=== PATIENT | female | born 1985 ===

== ENCOUNTER 2016-11-12 09:27 | Emergency (ER) | payer MEDICAID ==
[2016-11-12 09:35] VITALS: BP 137/74; PULSE 75; RESP 20; TEMP 97.7; O2SAT 100; BMI 35.4
--- NOTE | 2016-11-12 11:40 | US ---
Left lower extremity ultrasound Indication: Pain Technique: Duplex ultrasound evaluation of the left lower extremity Comparison: None available Findings: There is normal flow, compressibility, and augmentation of the left common femoral, femoral, and popliteal veins. The posterior tibial veins appear patent. Impression: No evidence of deep venous thrombosis in the left lower extremity.
--- NOTE | 2016-11-12 11:43 | ED PDOC ---
HPI: Back Time Seen by Provider: 11/12/16 10:12 Chief Complaint (Nursing): Lower Extremity Problem/Injury Chief Complaint (Provider): Lower Extremity Problem/Injury History Per: Patient History/Exam Limitations: no limitations Onset/Duration Of Symptoms: Days Current Symptoms Are (Timing): Still Present Quality Of Discomfort: "Pain" Severity: Mild Previous Symptoms: Back Pain Associated Symptoms: None Exacerbating Factor(s): Movement Additional Complaint(s): Patient is a 31 year old female who presents to ED for back pain since a fall in July 2016. Patient states she was initially evaluated in ED after the fall with normal Xrays, followed up with a chiropractor who instructed her that she had a pelvic tilt and a questionable abnormality in L5-S1. Patient states that after adjustments and yoga, pain is still present and only occasionally relieved with muscle relaxers and NSAIDs. Patient denies vaginal changes, urinary changes, weakness, numbness or neck pain. Patient reports that the pain is left sided, mostly the buttock with radiation up the back and down the left leg. Patient denies chest pain, SOB, leg swelling, palpations or leg pain. (-) leg weakness, saddle anesthesia, bowel or urinary incontinence Past Medical History Reviewed: Historical Data, Nursing Documentation, Vital Signs Vital Signs: Last Vital Signs Temp 97.7 F 11/12/16 09:34 Pulse 75 11/12/16 09:34 Resp 20 11/12/16 09:34 BP 137/74 11/12/16 09:34 Pulse Ox 100 11/12/16 09:34 - Medical History PMH: Asthma - Surgical History Surgical History: (x2 with epidurals ) - Family History Family History: States: No Known Family Hx - Living Arrangements Living Arrangements: With Family - Home Medications Home Medications: Ambulatory Orders Medication Instructions Recorded Cyclobenzaprine [Cyclobenzaprine 10 mg PO Q8 PRN #12 tab 11/12/16 HCl] traMADol [Ultram] 50 mg PO Q8 PRN #12 tab 11/12/16 - Allergies Allergies/Adverse Reactions: Allergies Allergy/AdvReac Type Severity Reaction Status Date / Time No Known Allergies Allergy Verified 11/12/16 09:46 Review of Systems ROS Statement: Except As Marked, All Systems Reviewed And Found Negative Constitutional: Negative for: Fever, Weakness Cardiovascular: Negative for: Chest Pain Respiratory: Negative for: Shortness of Breath Gastrointestinal: Negative for: Abdominal Pain Genitourinary Female: Negative for: Dysuria, Frequency, Vaginal Discharge, Vaginal Bleeding Musculoskeletal: Positive for: Back Pain, Leg Pain. Negative for: Neck Pain Neurological: Negative for: Weakness, Numbness Physical Exam - Reviewed Nursing Documentation Reviewed: Yes Vital Signs Reviewed: Yes - Physical Exam Appears: Positive for: Non-toxic, No Acute Distress Skin: Positive for: Normal Color, Warm Eye Exam: Positive for: Normal appearance Neck: Positive for: Normal, Painless ROM, Supple Cardiovascular/Chest: Positive for: Regular Rate, Rhythm. Negative for: Murmur Respiratory: Positive for: Normal Breath Sounds. Negative for: Respiratory Distress Pulses-Dorsalis Pedis (L): 2+ Pulses-Dorsalis Pedis (R): 2+ Pulses-Radial (L): 2+ Pulses-Radial (R): 2+ Gastrointestinal/Abdominal: Positive for: Normal Exam. Negative for: Tenderness Back: Positive for: Normal Inspection, Other (Left buttock tenderness, lower lumbar tenderness ). Negative for: L CVA Tenderness, R CVA Tenderness Extremity: Positive for: Normal ROM, Other (strength 5/5 upper and lower extremities ). Negative for: Pedal Edema, Calf Tenderness Neurologic/Psych: Positive for: Alert, Oriented, Gait (normal ). Negative for: Motor/Sensory Deficits - Laboratory Results Urine POC: Negative Urine dip results: Negative for: Leukocyte Esterase, Blood, Nitrate, Ketones, Glucose, Bilirubin, Protein - ECG O2 Sat by Pulse Oximetry: 100 (RA) Pulse Ox Interpretation: Normal Medical Decision Making Medical Decision Making: Time: 1025 Initial impression: Lumbar radiculopathy Initial plan: -- CT-lumbar -- Urine preg -- Urine dip -- Flexeril, Toradol and Tramadol -- Duplex Given symptoms at this time pain could also be related to sciatica. CT- Lumbar will be ordered due to history of trauma and us to r/o possible DVT Scribe Attestation: Documented by Shauna Shabazz acting as a scribe for Jorden Haynes PA-C. MD Scribe Attestation: All medical record entries made by the Scribe were at my direction and personally dictated by me. I have reviewed the chart and agree that the record accurately reflects my personal performance of the history, physical exam, medical decision making, and the department course for this patient. I have also personally directed, reviewed, and agree with the discharge instructions and disposition. CT: IMPRESSION: No acute compression fractures nor retropulsed fragments. Large central and bilateral (left larger than right) disc herniation L5-S1 level which results in canal stenosis and marked compressive effects on the thecal sac and left S1 nerve root. There may also be some mild compressive effects on the right S1 nerve root. The disc bulging changes seen at the L4-L5 and L3-L4 levels as described above. Decadron ordered. she states that the pain is controlled. she appears in NAD, normal gait. strength 5/[address] finding and need for further evaluation and treatment including likely physical therapy discussed return for saddle anesthesia, weakness to the legs, bowel or urinary incontinence. she understood this discussion. stable for discharge. all questions answered. Disposition - Clinical Impression Clinical Impression: Lumbar radiculopathy, Herniated disc - Patient ED Disposition Is Patient to be Admitted: No Counseled Patient/Family Regarding: Studies Performed, Diagnosis, Need For Followup, Rx Given - Disposition Referrals: [facility] [Outside] [facility] [Outside] [facility] [Outside] Disposition: Routine/Home Disposition Time: 12:56 Condition: IMPROVED Additional Instructions: follow up without fail for further evaluation and likely physical therapy return for weakness in the legs, numbness to the genital area, problems with urinating and with bowel movements or any new concerns Prescriptions: Cyclobenzaprine [Cyclobenzaprine HCl] 10 mg PO Q8 PRN #12 tab PRN Reason: Muscle Pain traMADol [Ultram] 50 mg PO Q8 PRN #12 tab PRN Reason: Other Instructions: Lumbar Disc Herniation (ED), Lumbar Radiculopathy (ED) Forms: [facility] ED School/Work Excuse Print Language: GERMAN
--- NOTE | 2016-11-12 12:17 | CT ---
PROCEDURE: CT lumbar spine dated 11/12/2016 HISTORY: pain COMPARISON: No prior study available for comparison TECHNIQUE: Axial computed tomography images were obtained of the lumbar spine without the use of intravenous contrast. Coronal and sagittal reformatted images were created and reviewed. Radiation dose: Total exam DLP = 1374.66 mGy-cm. FINDINGS: VERTEBRAE: Current study reveals no acute compression fractures nor retropulsed fragments. Vertebral bodies exhibit normal stature. Vertebral bodies and facets are also normally aligned. DISCS/SPINAL CANAL/NEURAL FORAMINA: At the L5-S1 level, there is disc space narrowing on. Large central and bilateral (left slightly larger than right) disc herniation results in marked canal stenosis and marked compression of the ventral surface of the thecal sac centrally and to the left more so than right. There is also presumed significant compression of the descending left-sided S1 nerve root. The disc also regions and may minimally posterolaterally displace the right-sided descending S1 nerve root as well. Facets are slightly prominent. Exit foramina appear adequate. The remaining levels exhibit relatively adequate disc height. Small to medium disc bulging changes noted at the L3-L4 and L4-L5 levels of which result in mild compressive effects on the ventral surface of the thecal sac former more so than latter. The exit foramina appear adequate at these levels. Minimal broad-based bulge of the posterior annulus noted at the L2-L3 and L1-L2 levels. PARASPINAL SOFT TISSUES: Paraspinal soft tissues grossly unremarkable. OTHER FINDINGS: None. IMPRESSION: No acute compression fractures nor retropulsed fragments. Large central and bilateral (left larger than right) disc herniation L5-S1 level which results in canal stenosis and marked compressive effects on the thecal sac and left S1 nerve root. There may also be some mild compressive effects on the right S1 nerve root. The disc bulging changes seen at the L4-L5 and L3-L4 levels as described above.
[2016-11-12] MEDS ORDERED: Dexamethasone 4 mg/1 ml ONE (13:45)
== END 2016-11-12 14:10 | disposition home or self-care (01) ==
LOC: H.ER 09:27
DX: M51.27 Other intervertebral disc displacement, lumbosacral region (principal)